=== PATIENT | female | born 1985 | race Caucasian/White ===

== ENCOUNTER 2024-02-16 14:53 | Emergency (ER) | payer MEDICAID ==
[2024-02-16 15:17] LABS: APPEARANCE,URINE SLIGHTLY CLOUDY (CLEAR); BILIRUBIN,URINE NEGATIVE (NEGATIVE); COLOR,URINE YELLOW (YELLOW); GLUCOSE,URINE NEGATIVE (NEGATIVE); KETONES,URINE NEGATIVE (NEGATIVE); LEUKOCYTE ESTERASE,URINE NEGATIVE (NEGATIVE); NITRITE,URINE NEGATIVE (NEGATIVE); OCCULT BLOOD,URINE NEGATIVE (NEGATIVE); PROTEIN,URINE TRACE mg/dL (NEGATIVE); UROBILINOGEN,URINE 0.2 EU/dL (0.2-1.0)
[2024-02-16 15:22] LABS: AMORPHOUS SEDIMENT,URINE NOT SEEN; BACTERIA,URINE FEW; EPITHELIAL CELLS,URINE FEW; MUCUS,URINE NOT SEEN; RBC,URINE 0-5 (0-5); WBC,URINE 0-5 (0-5)
[2024-02-16 15:23] LABS: AMPHETAMINES SCREEN, URINE NEGATIVE (NEGATIVE); BARBITURATE SCREEN,URINE NEGATIVE (NEGATIVE); BENZODIAZEPINES SCREEN,URINE NEGATIVE (NEGATIVE); METHADONE SCREEN, URINE NEGATIVE (NEGATIVE); METHAMPHETAMINES SCREEN, URINE NEGATIVE (NEGATIVE); OXYCODONE SCREEN,URINE NEGATIVE (NEGATIVE); PROPOXYPHENE SCREEN,URINE NEGATIVE (NEGATIVE); THC SCREEN,URINE 50 NG/ML PRESUMPTIVE POSITIVE (NEGATIVE)
[2024-02-16 15:56] LABS: BASOPHILS ABSOLUTE AUTO 0.07 K/uL (0.00-0.10); BASOPHILS PERCENT AUTO 0.7 % (0.1-1.3); EOSINOPHILS ABSOLUTE AUTO 0.06 K/uL (0.00-0.40); EOSINOPHILS PERCENT AUTO 0.6 % (0.0-5.4); HEMATOCRIT 29.2 % (34.3-46.0); HEMOGLOBIN 9.1 g/dL (11.2-15.5); IMMATURE GRAN ABSOLUTE AUTO 0.06 K/uL (0.00-0.23); IMMATURE GRAN PERCENT AUTO 0.6 % (0.0-0.7); LYMPHOCYTES ABSOLUTE AUTO 2.22 K/uL (0.8-3.3); LYMPHOCYTES PERCENT AUTO 23.2 % (11.4-47.7); MEAN CORPUSCULAR HEMOGLOBIN 22.3 pg (31.6-35.5); MEAN CORPUSCULAR HGB CONC 31.2 g/dL (31.6-35.5); MEAN CORPUSCULAR VOLUME 71.6 fL (81.4-99.0); MONOCYTES ABSOLUTE AUTO 0.38 K/uL (0.20-0.90); NEUTROPHILS ABSOLUTE AUTO 6.79 K/uL (1.0-7.6); NEUTROPHILS PERCENT AUTO 70.9 % (40.0-78.1); PLATELET COUNT,PLT 363 K/uL (130-375); RED BLOOD CELL COUNT 4.08 M/uL (3.77-5.24); WHITE BLOOD CELL COUNT,WBC 9.6 K/uL (3.2-11.0)
[2024-02-16 16:18] LABS: A/G RATIO 0.9 (1.2-2.2); ALANINE AMINOTRANSFERASE,ALT 28 U/L (12-78); ALBUMIN 3.4 g/dL (3.4-5.0); ALKALINE PHOSPHATASE 97 U/L (46-116); ASPARTATE AMNIOTRANSFERASE,AST 16 U/L (15-37); BILIRUBIN TOTAL 0.3 mg/dL (0.2-1.0); BLOOD UREA NITROGEN,BUN 11 mg/dL (7-18); CALCIUM 9.2 mg/dL (8.5-10.1); CARBON DIOXIDE,CO2 26 mmol/L (21-32); CHLORIDE,CL 103 mmol/L (100-108); CREATININE 0.9 mg/dL (0.6-1.0); ESTIMATED GFR 83 mL/min (>60); GLUCOSE RANDOM 97 mg/dL (74-106); POTASSIUM,K 3.8 mmol/L (3.6-5.2); SODIUM,NA 137 mmol/L (140-148)
[2024-02-16 16:20] LABS: ANION GAP 11.8 mmol/L (5.0-14.0)
[2024-02-16] MEDS: LORazepam 2 MG/ML SDV IVPUSH ONE ×2 (16:37→17:15)
[2024-02-16] MEDS: Dextrose 5% in Water 1,000 ML IV SCH (16:40)
[2024-02-16] MEDS: Sodium Bicarbonate 8.4% 50 MEQ/50 ML Syringe IVPUSH ONE (17:24)
[2024-02-16] MEDS ORDERED: Sodium Bicarbonate 8.4% 50 MEQ/50 ML Syringe ONE (17:40)
[2024-02-16] MEDS: Etomidate 2 MG/ML 10 ML SDV IV ONE (17:55)
[2024-02-16] MEDS: Rocuronium 50 MG/5 ML Vial IV ONE (18:01)
[2024-02-16] MEDS: Propofol 200 MG/20 ML SDV IV ONE ×3 (18:05→18:10)
[2024-02-16] MEDS: Sodium Bicarbonate 150 MEQ in Dextrose 5% in Water 850 ML IV ONE (18:19)
== END 2024-02-16 18:25 ==
LOC: JP.ED 14:53
DX: T43.014A Poisoning by tricyclic antidepressants, undetermined, initial encounter (principal); K21.9 Gastro-esophageal reflux disease without esophagitis; F17.210 Nicotine dependence, cigarettes, uncomplicated; Z79.899 Other long term (current) drug therapy
CPT/HCPCS: 31500; 36415; 43752; 51702; 71045; 71045-26; 80053; 80143; 80179; 80305-QW; 80307; 81001; 81025; 83605; 85025; 93005; 96361; 96374; 96375; 96376; 99285-25; J2060; J2704; J3490; J7060

== ENCOUNTER 2024-07-10 15:55 | Emergency (ER) | payer SELFPAY ==
[2024-07-10] MEDS: Proparacaine 0.5% Ophth Soln 15 ML Bottle EYEBOTH ONE (17:10)
== END 2024-07-10 17:28 | disposition home or self-care (01) ==
LOC: JP.ED 15:55
DX: H10.9 Unspecified conjunctivitis (principal); K21.9 Gastro-esophageal reflux disease without esophagitis; Z79.899 Other long term (current) drug therapy
CPT/HCPCS: 99283; A9270